=== PATIENT | female | born 1990 | race Two or more races ===

== ENCOUNTER 2025-05-24 16:29 | Emergency (ER) | payer OTHER, SELFPAY ==
--- NOTE | ~2025-05-24 | XR_ITS ---
CLINICAL HISTORY: right upper arm pain numbness 4 views right shoulder Comparison: None Findings: No fractures or dislocations. No significant arthritic change. Acromioclavicular joint is in good alignment. No radiopaque foreign body. Normal visualized right chest. Impression: Normal right shoulder. No skeletal abnormality. This document has been electronically signed by: Pawan Talavera MD on 05/24/2025 17:41:41
[2025-05-24 16:43] VITALS: BP 134/89; PULSE 103; RESP 18; TEMP 36.4; O2SAT 97; BMI 27.3
--- NOTE | 2025-05-24 16:43 | ED_ITS ---
HPI - Extremity Injury (Upper) General Chief Complaint: Extremity Injury, Upper Stated Complaint: upper R arm pain Time Seen by Provider: 05/24/25 18:43 Source: patient Mode of arrival: ambulatory Limitations: no limitations History of Present Illness ED Provider: Renee Little PA-C HPI narrative: Patient is a 35 year old assigned female at with a past medical history of hypothyroidism managed without medication presenting to the emergency department for right upper extremity pain, numbness, and tingling. Patient states that she has had right shoulder and upper arm pain for about 3 months with intermittent numbness and tingling that radiates from her shoulder to her fingers. Patient denies any color changes, circulation issues, or swelling to her right arm. She denies any trauma, falls, old injuries, or previous surgery to that arm. Patient reports that she has not taken any medication or tried anything for the pain. Patient states that the pain has been worse since yesterday after getting her BP taken on that arm at her [employer]. Patient reports that she works at a [employer] center and spends most of her day sitting and typing. Related Data Previous Rx's ?Medication ?Instructions ?Recorded prednisone 20 mg tablet 40 mg (2 x 20 mg) PO DAILY C OPD 05/24/25 exacerbation 5 days #10 tabs Allergies Allergy/AdvReac Type Severity Reaction Status Date / Time No Known Allergies Allergy Verified 05/24/25 16:46 Review of Systems Constitutional: Constitutional: Reports as per HPI Eyes: Eyes: Reports as per HPI ENT: Reports as per HPI Cardiovascular: Cardiovascular: Reports as per HPI Respiratory: Respiratory: Reports as per HPI Gastrointestinal: Gastrointestinal: Reports as per HPI Genitourinary: Genitourinary: Reports as per HPI Musculoskeletal: Musculoskeletal: Reports as per HPI Integumentary/Breasts: Skin/Breast: Reports as per HPI Neurologic: Reports as per HPI Psychiatric: Psychiatric: Reports as per HPI Endocrine: Endocrine: Reports as per HPI Hematologic/Lymphatic: Hematologic/Lymphatic: Reports as per HPI Allergic/Immunologic: Allergic/Immunologic: Reports as per HPI PMF Past Medical History Attestation statement: The following information was validated with the patient. Source: old records reviewed and nursing notes reviewed Social History Social History Alcohol intake: current Alcohol intake frequency: holidays/special occasions only Substance Use Type: Marijuana Physical Exam Vital Signs: Vital Signs: Last Vital Signs Temp 98.1 F 05/24/25 20:46 Pulse 78 05/24/25 20:46 Resp 18 05/24/25 20:46 BP 129/86 05/24/25 20:46 Pulse Ox 97 05/24/25 20:46 O2 Del Method Room Air 05/24/25 20:46 BMI result Body Mass Index 27.3 Const: General: cooperative, no acute distress, alert and awake Nutritional Appearance: well nourished Orientation/consciousness: patient oriented x3 HEENT: Head: Yes normal to inspection and Yes atraumatic Ears: hearing grossly normal bilaterally and external ears normal General nose exam: Normal external nose present, no nasal discharge noted and no epistaxis Face and sinus: Yes normal facial exam, No abrasion and No laceration Mouth: Normal oral and palatal mucosa present, no drooling and no muffled voice Eyes: General: appearance normal, both eyes and all related structures Periorbital: periorbital findings normal Eyelids: Yes eyelids normal Conjunctivae: conjunctivae normal Pupils: Equal, round and reactive pupils present EOM: EOMs intact bilaterally Neck: Neck: Yes normal visual inspection and Yes full ROM Resp: Effort & Inspection: normal respiratory effort and able to speak in complete sentences Neuro: General: patient oriented x3, moves all extremities and CN's II-XI intact bilaterally Cranial nerves: Yes Equal, round and reactive pupils present Cognition (Neuro): normal cognition Extrem: General: Yes normal to inspection and Yes capillary refill normal Right upper extremity: normal to inspection, normal capillary refill and shoulder/upper arm Details: normal to inspection and normal ROM; no tenderness, no swelling and no unusual warmth; no cyanosis and no edema Left upper extremity: normal to inspection and full ROM Psych: Appearance: grossly normal Mental Status: mental status grossly normal Affect: normal affect Attitude: cooperative Thought process: Normal thought process present Thought content: Normal thought content present Insight: Good insight present (Psych) Course Course Course Narrative: This is a Rapid Medical Examination (RME) performed by Portillo Daniel PA-C in triage. Full HPI, ROS, assessment and treatment plan per primary provider in the Main ED. Hx: 35 yo F here for eval of right upper arm pain intermittently x months. reports sharp pain, arm feels weak, with intermittent numbness. symptoms have been more constant since yesterday after she had her BP taken at her OBGYN appointment. no injury/trauma. no difficulty moving the RUE. attempted to sched appointment w/ pcp however cannot wait. Plan: imaging Medical Decision Making Medical Decision Making MDM Narrative: Patient is a 35 year old assigned female at with a past medical history of hypothyroidism managed without medication presenting to the emergency department for right upper extremity pain, numbness, and tingling. Patient's physical exam was as noted in the physical exam portion of this note. Patient's right shoulder x-ray showed no acute process. I explained my physical exam findings as well as all test results to the patient. I answered all questions asked by the patient. I stressed the importance of the patient taking her medication as directed (either prescribed or as the over the counter packaging recommends). I stressed the importance of the patient following up with her primary care provider, the orthopedic team, and a neurologist. I stressed the importance of the patient returning to the emergency department immediately if her symptoms were to worsen or if she were to develop any dizziness, shortness of breath, difficulty breathing, chest pain, blurry vision, loss of vision, nausea, vomiting, abdominal pain, fever, chills, back pain, or any other complaints. Patient verbalized agreement and understanding with this treatment plan and discharge. Differential Diagnosis Differential Diagnoses: The differential diagnosis associated with the presentation includes RUE paresthesias Right shoulder pain Right humerus pain Admission/Observation Consideration of admission/observation: Escalation of care including admi ssion/observation considered Patient would have been admitted to the hospital had her work up had any findings where hospital admission was appropriate and her clinical presentation warranted hospital admission. Independent Interpretation I performed an independent interpretation of an: Plain X-Ray Interpretation: My interpretation is in agreement with the radiologist's impression of this imaging study. Reason for Exam: right upper arm pain/numbness CLINICAL HISTORY: right upper arm pain numbness 4 views right shoulder Comparison: None Findings: No fractures or dislocations. No significant arthritic change. Acromioclavicular joint is in good alignment. No radiopaque foreign body. Normal visualized right chest. Impression: Normal right shoulder. No skeletal abnormality. This document has been electronically signed by: Pawan Talavera MD on 05/24/2025 17:41:41 Dictated By: Pawan Talavera MD Signed By: Electronically signed by Pawan Talavera MD 05/25/25 0155 Radiology Impression Discussion of test interpretation with radiology: I have reviewed the radiologist's reading. Discharge Plan Discharge Clinical Impression: Paresthesia Patient Disposition: Home, Self-Care Instructions: Paresthesia (ED) Additional Instructions: Your imaging today was unremarkable. You should follow up with the orthopedic team and neurology team. IF you are prescribed home medications and/or you are taking over the counter medications at home - it is very important you continue to do so as prescribed / directed unless told otherwise. Follow up with a primary care provider. Return to the emergency department immediately if your symptoms worsen or if you develop any numbness, tingling, di zziness, shortness of breath, difficulty breathing, chest pain, blurry vision, loss of vision, nausea, vomiting, abdominal pain, fever, chills, back pain, or any other complaints. If you do not have a primary care provider - call any of the below numbers to establish and follow up with a primary care provider. [facility] Primary Care ([place]) [phone] [place] [address], [address] [facility] Primary Care ([address] [place]) [phone] [place] [address], [address] [facility], [address] [facility] Primary Care ([address]) [phone] [place] [address], [address] [facility], [address] [facility] Primary Care ([place]) [phone] [place] [address] [address] [facility], [address] [facility] Family Medicine [phone] [address] [facility], [address] Please see the information below about our Patient Portal. If you are not yet enrolled in the [facility] Patient Portal, you will receive an enrollment email invitation following your visit to any [facility] setting. You may also self-enroll in the Patient Portal by visiting our website: [email or web address] The following information is required to access the Patient Portal: - Your [facility] Medical Record Number - Your personal home email address (must match what is in your electronic medical record, Registration staff can assist with this) - Name - Date of Capabilities of the Patient Portal: - Message some providers - View upcoming appointments - Access your health summary, medical history, and visit history - View current conditions and allergies - View procedure and lab results - View your medications, including guidelines, side effects, and precautions - Complete pre-appointment questionnaires requested by your provider - Ready summary reports of your office visits and procedures To access the Patient Portal Mobile Cole, follow these directions: - Search [employer] in the Cole Store or [employer] Store - Download the Cole - Search for [facility] - Enter your login/password Prescriptions: New prednisone 20 mg tablet 40 mg PO DAILY 5 Days Qty: 10 0RF Referrals: [facility] Orthopedic Surgeons [Provider Group] Referral Note: Call to establish and follow up with the orthopedic team. [facility] Neuro/Sleep [Provider Group] Referral Note: Call to establish and follow up with the neurology team. Stand Alone Forms: Work/School Release Interventions: ED Discharge Assessment Last Done: 05/24/25 20:46 Discharge Date/Time: 05/24/25 20:47 Print Language: [place] Citizen
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
--- OUTSIDE RECORDS SUMMARY | 2025-05-24 19:45 | XMS_ITS | Clinical Summary ---
Author Organization [facility] Address [address] [place] [address] Phone Care Team Providers Care Ceramic Designer Name Role Phone Moncho Duffy MD Primary Care Provider Allergies No known active allergies Medications escitalopram (LEXAPRO) 10 mg tablet Take 1 tablet (10 mg total) by mouth 1 (one) time each day. Active buPROPion SR (WELLBUTRIN SR) 100 mg 12 hr tablet Take 1 tablet (100 mg total) by mouth 1 (one) time each day. Do not crush, chew, or split. Active omeprazole (PriLOSEC) [address] capsule Take 1 capsule (40 mg total) by mouth 1 (one) time each day before breakfast. DO NOT CRUSH OR CHEW 90 capsule 1 02/21/2025 Active Active Problems Problem Noted Date Diagnosed Date Iron deficiency 07/02/2018 Elevated cholesterol 06/10/2011 Encounters Date Type Department Care Team Description 05/22/2025 Telephone Adult Medicine [address] [phone] Moncho Duffy MD from Last 3 Months Immunizations Name Administration Dates Next Due HPV, Quadrivalent 01/21/2008,09/22/2007,07/22/20 07 Influenza trivalent, with pr eservative (Fluzone; Afluria) 6mo and older 06/20/2013,06/09/2011 Pfizer SARS-CoV-2 COVID-19, mRNA, LNP-S, preservative free 07/04/2021,06/13/2021 Tdap Tetanus diptheria acell ular pertussis (Boostrix; Adacel) 7yo and older 09/17/2020 Surgical History Surgery Date Site/Laterality Comments APPENDECTOMY PROCEDURE: HISTORICAL APPENDECTOMY; COMMENT: 2020 Medical History Medical History Date Comments Other specified personal his tory presenting hazards to health(V15.89) 12/2012 DX:Other specifie d personal history presenting hazards to health(V15.89); COMMENT: colpo GERMÁN I Iron deficiency 07/02/2018 DX:Iron deficien cy Family History Medical History Relation Name Comments Breast cancer Aunt Diabetes Mother Hyperlipidemia Mother Thyroid disease Mother Other: other Paternal Grandfather ''stoma ch cancer Other: other Uncle stomach Cancer Relation Name Status Comments Aunt Alive Brother Alive Father Alive Mother Alive Paternal Grandfather Sister 1 Alive Sister 2 Alive Sister 3 Alive Uncle Alive Social History Tobacco Use Types Packs/Day Years [...] Orientation Straight 08/05/2024 3: 46 PM EST Obstetrics History Last Filed Vital Signs Vital Sign Reading Time Taken Comments Blood Pressure 110/75 11/16/2024 9:37 AM EST Pulse 86 11/16/2024 9:37 AM EST Temperature 36.1 C (97 F) 08/25/2024 12:21 PM EST Respiratory Rate 16 08/25/2024 2:17 PM EST Oxygen Saturation 98% 11/16/2024 9:37 AM EST Inhaled Oxygen Concentration - - Weight 92.1 kg (203 lb) 11/16/2024 9:37 AM EST Height 170.2 cm (5' 7 ) 11/16/2024 9:37 AM EST Body Mass Index 31.79 11/16/2024 9:37 AM EST Plan of Treatment Upcoming Encounters Date Type Department Care Team (Late st Contact Info) Description 06/19/2025 2:15 PM EDT Office Visit Adult Medicine [address] [phone] Yamile Scott PA [address] [place], [place] 09/25/2025 8:00 AM EST Office Visit Adult [address] [phone] Yamile Scott PA [address] [place] [address] Health Maintenance Due Date Last Done Comments Hepatitis B Vaccines (1 of 3 - 19+ 3-dose series) 02/05/2008 Social Influencers of Health Screening 08/17/2022 Depression Screening 09/14/2024 01/26/2024 COVID-19 Vaccine (3 - 2024-2 6 season) 2025 07/04/2021, 06/13/2021 Influenza Vaccine (#1) 2025 3, 06/09/2011 Cervical Cancer Screening: P ap Smear 10/29/2025 10/29/2022, 02/08/2015 Cholesterol Screening (Lipid Panel) 01/25/2029 01/26/2024, 01/26/2024 DTaP,Tdap,and Td Vaccines (4 - Td or Tdap) 09/17/2030 09/17/2020, 02/21/2016, 11/13/2007 HPV Vaccines Completed 01/21/2008, 09/22/2007, 07/22/2007 HIV Screening Completed 07/23/2016 Hepatitis C Screening Completed 07/23/2016 HIB Vaccines Aged Out No longer eligi ble based on patient's age to complete this topic Hepatitis A Vaccines Aged Out No long er eligible based on patient's age to complete this topic IPV Vaccines Aged Out No longer eligi ble based on patient's age to complete this topic MMR Vaccines Aged Out No longer eligi ble based on patient's age to complete this topic Meningococcal ACWY Vaccine Aged Out N o longer eligible based on patient's age to complete this topic Meningococcal B Vaccine Aged Out No l onger eligible based on patient's age to complete this topic Pneumococcal Vaccine: Pediatrics (0 to 5 Years) and At-Risk Patients (6 to 49 Years) Aged Out No longer eligible b ased on patient's age to complete this topic RSV Immunization Patients Under 20 months Aged Out No longer eligible b ased on patient's age to complete this topic Varicella Vaccines Aged Out No longer eligible based on patient's age to complete this topic Procedures Procedure Name Priority Date/Time Associated Diagnosis Comments DEPRESSION SCREENING Routine 01/26/2024 LIPID PANEL Routine 01/26/2024 PAP SMEAR Routine 10/29/2022 HEPATITIS C SCREENING Routine 07/23/2016 HIV SCREENING Routine 07/23/2016 from Last 3 Months or Most Recently Relevant to Health Maintenance Results * Depression Screening (01/26/2024) [facility] Depression Screening abstracted [facility] Provider HEALTH MAINTENANCE Final Result * (ABNORMAL) Lipid panel (01/26/2024) [facility] LDL/HDL Ratio 4 0 - 4 Triglycerides 209(A) 0 - 150 mg/dL Cholesterol 180 0 - 200 mg/dL HDL 49 >=40 mg/dL LDL Cholesterol 90 0 - 100 mg/dL Blood Venous blood specimen / Unknown Historical Provider LAB BLOOD ORDERABLES [place] [facility] Result * Pap Smear (10/29/2022) [facility] Pap smear no interpretation , abstracted [facility] Provider HEALTH MAINTENANCE Final Result * HIV Screening (07/23/2016) [facility] HIV Screening abstracted us Historical Provider HEALTH MAINTENANCE Final Result * Hepatitis C Screening (07/23/2016) Hepatitis C Screening abstracted us Historical Provider HEALTH MAINTENANCE Final Result from Last 3 Months or Most Recently Relevant to Health Maintenance Insurance [facility] [employer] Care Teams Ceramic Designer Relationship Specialty Start Date End Date Moncho Duffy MD [address] [place] [address] PCP - General 01/20/23
[2025-05-24 20:46] VITALS: BP 129/86; PULSE 78; RESP 18; TEMP 36.7; O2SAT 97
== END 2025-05-24 20:47 | disposition home or self-care (01) ==
PROVIDERS: Emergency Provider Emergency Medicine Emergency Medical Services
DX: R20.2 Paresthesia of skin (principal); M79.621 Pain in right upper arm; R20.0 Anesthesia of skin
CPT/HCPCS: 73030; 99283; 99284

== ENCOUNTER → 2025-05-24 16:46 | Outpatient (BNV) | payer OTHER, SELFPAY | PROVIDERS: Visit Provider Radiology Diagnostic Radiology | DX: M79.621 Pain in right upper arm (principal); R20.2 Paresthesia of skin | CPT/HCPCS: 73030 ==

== ENCOUNTER 2025-07-28 10:42 | Outpatient (AMB) | payer OTHER, SELFPAY ==
--- NOTE | 2025-07-28 10:50 | A.PHYSOV ---
Vital Signs 07/28/25 10:51 Height 5 ft 7 in Weight 205 lb BMI 32.1 Intake Visit Reasons: NPV Purnima RUE Pain Intake Note: Patient is 35 year old male here for a new patient office visit. Patient is here with right upper extremity pain. Patient states she has had pain for 5 months in her upper arm. Patient recalls no injury. 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 The upper arm pain began in the summertime and is described as a random pain that weakens the whole arm, primarily affecting the right arm and occasionally the left. The pain is not associated with any injury and does not worsen with touch or neck movement. The patient reports that holding the arm up for extended periods results in numbness and weakness, necessitating the arm to be lowered. The pain is sporadic, with episodes occurring daily but not consistently throughout the day. The patient has a history of carpal tunnel syndrome, primarily affecting the right hand, and has experienced symptoms for approximately 15 years. She reports that activities such as doing her daughter's hair exacerbate the wrist pain, suggesting a possible link to her carpal tunnel syndrome. The patient has not undergone physical therapy for these issues and has not been taking any pain medication due to a high pain tolerance. Redo of x-ray of her shoulder and cervical spine reported below. I reviewed the referring provider's no prior consultation. Pain Description - Onset: Began in the summertime, random occurrence. - Quality: Weakens the whole arm, primarily right arm, occasionally left. - Location: Upper arm, under the shoulder, sometimes radiating down. - Exacerbating factors: Holding arm up for extended periods. - Relieving factors: Lowering the arm. - Interference: Causes numbness and weakness, sporadic daily episodes. Results - Imaging: X-ray right shoulder 06/19/2025 impression: No clear source of pain identified. X-ray cervical spine 06/19/2025 impression: Appreciable degenerative changes. The images were reviewed by me and I agree with the radiology report. [facility] Surgical History (Updated 07/28/25 @ 10:55 by Maria Isabel Jack MA) Hx of appendectomy (~2021) Social History Alcohol intake: current Alcohol intake frequency: holidays/special occasions only Patient Tobacco Use Status: Former Tobacco user Substance Use Type: Marijuana Review of Systems Narrative Review of Systems - Musculoskeletal: Reports upper arm pain, denies pain with touch or neck movement. - Neurological: Reports numbness and weakness in the right arm when held up for extended periods. Physical Exam Exam Exam: Physical Exam Cervical Spine: Examination of her cervical spine, there is no visible swelling or deformity. She is nontender to palpation. Full range of motion. Special Tests: Axial Compression test: Negative Spurlings test: Negative Lhermitte's sign is Negative Upper Extremities: Full range of motion bilateral upper extremities. Negative Neer testing and empty can test. Positive Tinel test right wrist. 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 Neuro: Sensation: Intact to upper extremities bilateral to light touch Strength C5 (Elbow Flexion): 5/5 on the left and 5/5 on the right. C6 (Elbow Ext): 5/5 on the left and 5/5 on the right. C7 (Elbow Ext): 5/5 on the left and 5/5 on the right. C8 (Finger Flex): 5/5 on the left and 5/5 on the right. T1 (Finger Abd/Add): 5/5 on the left and 5/5 on the right. DTR: C5 (Biceps): Left 2 Right 2 C6 (Brachioradialis): Left 2 Right 2 C7 (Triceps): Left 2 Right 2 Diego sign: Negative No pathologic clonus. No involuntary movement. Vital Signs: BMI result Body Mass Index 32.1 Office Procedures AMB Carpal Tunnel Injection AMB Carpal Tunnel Injection Details: Right Carpal tunnel injection. Patient was educated about the risks, complications and benefits of the procedure including but not limited to increased serum glucose, infection, nerve damage, bleeding, tendon/ligament damage and pain. Patient's questions were answered. Verbal consent was obtained. I cleansed the volar aspect of the wrist in line with the fourth digit, 1 cm proximal to the crease of the wrist with Betadine, 20 mg of Kenalog was injected into the carpal tunnel with a 25-gauge needle. Patient denied any paresthesia. The patient tolerated the procedure well without immediate complication. Patient was cleansed with alcohol prep and a Band-Aid was applied. Carpal Tunnel Injection -: Right All charges added?: Procedure code (CPT) selection complete Office Meds Kenalog 40 mg/mL suspension for injection Performing Provider: LIZ Willis Performing Location: [facility] Administered by: LIZ Willis on 07/28/25 11:42 Dose Route Admin Location Dispensed Lot Number Expiration Date ND Online User Experience Strategist 20 mg peripheral nerve block 1 mL [address]-7 [employer] Total Dispensed Waste 1 mL 50 % Assessment & Plan Assessment & Plan (1) Cervicalgia: Code(s): M54.2 - Cervicalgia Category: Medical (2) Cervical radiculopathy: Code(s): M54.12 - Radiculopathy, cervical region Category: Medical (3) Carpal tunnel syndrome of right wrist: Code(s): G56.01 - Carpal tunnel syndrome, right upper limb Category: Medical Plan Pain Management - Affect: No specific impact on mood or psychological wellbeing discussed. - Analgesia: No current pain medication use due to high pain tolerance. - Adverse Effects: None reported as no medication is being taken. - Activities of Daily Living: Pain affects ability to hold arm up for long periods, impacting activities such as doing hair. - Aberrant Drug Related Behaviors: None reported. Plan Patient was informed and verbally consented to the use of an ambient scribe for clinic note documentation during this visit. 1. Upper Arm Pain The patient is experiencing upper arm pain primarily in the right arm, with episodes of numbness and weakness when the arm is held up for extended periods. A conservative approach with physical therapy is recommended to address the shoulder and arm issues. If physical therapy is ineffective, further evaluation and treatment options, such as injections, may be considered. 2. Carpal Tunnel Syndrome The patient has a long-standing history of carpal tunnel syndrome, primarily affecting the right hand, with symptoms exacerbated by activities such as doing hair. A cortisone injection is proposed to reduce inflammation and assess if the pain is originating from the carpal tunnel syndrome. The injection is both therapeutic and diagnostic, helping to determine if the carpal tunnel is the source of the arm pain. In some cases carpal tunnel does radiate into shoulder. She consented to carpal tunnel injection. Post-injection instructions, recommend holding moist heat compresses for 15 minutes daily. Continue splinting. Recommend follow-up 4 weeks for re-evaluation we may consider further imaging. Patient declined physical therapy. Thank you for allowing me to participate in the care of your patient. Orders: Orders AMB Carpal Tunnel Injection Today G56.01 - Carpal tunnel syndrome, right upper limb Coding Level of Care Code Tele New Pt Level 4 (41131) Diagnoses Cervicalgia M54.2 Cervical radiculopathy M54.12 Carpal tunnel syndrome of right wrist G56.01 CPT Codes AMB Carpal Tunnel Injection - Carpal Tunnel Therapeutic Injection - : Right ([id number])
[2025-07-28 10:51] VITALS: BMI 32.1
== END 2025-07-28 11:19 | disposition home or self-care (01) ==
LOC: HO.HPHYS 10:42
PROVIDERS: PCP Internal Medicine; Visit Provider Physician Assistant
DX: M54.2 Cervicalgia (principal); M54.12 Radiculopathy, cervical region; G56.01 Carpal tunnel syndrome, right upper limb
CPT/HCPCS: 20526; 99204

== ENCOUNTER → 2025-07-28 10:42 | Outpatient (BNVA) | payer OTHER, SELFPAY | PROVIDERS: PCP Internal Medicine; Visit Provider Physician Assistant | DX: M54.12 Radiculopathy, cervical region (principal); M79.621 Pain in right upper arm | CPT/HCPCS: 20526; 99202; J3301 ==